=== PATIENT | female | born 1980 | race Two or more races ===

== ENCOUNTER → 2024-04-02 | Outpatient (CLI) | payer MEDICAID, SELFPAY ==
--- NOTE | 2024-04-02 16:00 | XR_ITS ---
Examination: Breast ultrasound, unilateral, right complete Date and time of exam: April 02, 2024 1624 hours INDICATIONS: Mammogram March 10, 2024 8 mm more pronounced focal asymmetry upper outer right breast, family history breast cancer, patient states left breast pain 5 years Technique: Real-time hui scale ultrasonographic imaging performed right breast including all 4 quadrants as well as nipple retroareolar and axillary region. Findings: 1:00 oval mass hyperechoic 8 x 5 x 8 mm Retroareolar oval mass lobular margins 5 x 4 x 5 mm IMPRESSION: BI-RADS Category 3: Probably benign findings Recommend 1 additional 6 month right breast sonogram follow-up to document stability of solid nodule described above
== END | disposition home or self-care (01) ==
PROVIDERS: PCP Nurse Practitioner Family; Referring Provider Nurse Practitioner Family; Visit Provider Nurse Practitioner Family
DX: N63.41 Unspecified lump in right breast, subareolar (principal); N63.11 Unspecified lump in the right breast, upper outer quadrant
CPT/HCPCS: 76641